=== PATIENT | female | born 1975 | race African-American/Black ===

== ENCOUNTER 2021-08-01 07:07 | Emergency (ER) | payer OTHER ==
[2021-08-01] MEDS ORDERED: Boostrix 0.5 ML (Tdap) VIAL ONE (08:01)
== END 2021-08-01 08:13 | disposition home or self-care (01) ==
LOC: NAV ERS 07:07
DX: L03.012 Cellulitis of left finger (principal); I10 Essential (primary) hypertension; F17.210 Nicotine dependence, cigarettes, uncomplicated; Z79.899 Other long term (current) drug therapy
CPT/HCPCS: 26010; 87070; 87205; 90471; 90715

== ENCOUNTER 2021-11-27 16:35 | Emergency (ER) | payer SELFPAY | END 2021-11-27 17:05 | disposition home or self-care (01) | LOC: NAV ERS 16:35 | DX: L02.811 Cutaneous abscess of head [any part, except face] (principal); I10 Essential (primary) hypertension; F17.210 Nicotine dependence, cigarettes, uncomplicated; Z79.899 Other long term (current) drug therapy | CPT/HCPCS: 87070; 87077; 87186; 87205; 99283 ==

== ENCOUNTER 2022-03-29 07:26 | Emergency (ER) | payer SELFPAY | END 2022-03-29 08:35 | disposition home or self-care (01) | LOC: NAV ERS 07:26 | DX: H61.21 Impacted cerumen, right ear (principal); I10 Essential (primary) hypertension; F17.210 Nicotine dependence, cigarettes, uncomplicated; Z79.899 Other long term (current) drug therapy | CPT/HCPCS: 69209 ==

== ENCOUNTER 2022-05-05 14:30 | Emergency (ER) | payer SELFPAY | END 2022-05-05 16:05 | disposition home or self-care (01) | LOC: NAV ERS 14:30 | DX: R05.9 Cough, unspecified (principal); R19.7 Diarrhea, unspecified; Z20.822 Contact with and (suspected) exposure to COVID-19; I10 Essential (primary) hypertension | CPT/HCPCS: 87081; 87430; 87804; 99283; U0003; U0005 ==

== ENCOUNTER 2022-07-24 07:58 | Emergency (ER) | payer SELFPAY ==
[2022-07-24] MEDS ORDERED: Ketorolac Tromethamine 30 MG/ML VIAL ONE (08:32)
== END 2022-07-24 08:50 | disposition home or self-care (01) ==
LOC: NAV ERS 07:58
DX: K08.89 Other specified disorders of teeth and supporting structures (principal); I10 Essential (primary) hypertension; F17.210 Nicotine dependence, cigarettes, uncomplicated
CPT/HCPCS: 96372; 99282; J1885

== ENCOUNTER 2022-11-24 15:31 | Emergency (ER) | payer SELFPAY | END 2022-11-24 17:37 | disposition home or self-care (01) | LOC: NAV ERS 15:31 | DX: J06.9 Acute upper respiratory infection, unspecified (principal); I10 Essential (primary) hypertension; F17.210 Nicotine dependence, cigarettes, uncomplicated | CPT/HCPCS: 87804; 99283 ==

== ENCOUNTER 2023-06-15 14:21 | Emergency (ER) | payer SELFPAY ==
[2023-06-15] MEDS ORDERED: Naproxen 500 MG TAB ONE (15:12)
[2023-06-15 16:08] LABS: SARS-CoV-2 NAA Rapid Test Not Detected (NotDetected)
== END 2023-06-15 15:29 | disposition home or self-care (01) ==
LOC: NAV ERS 14:21
DX: J02.9 Acute pharyngitis, unspecified (principal); J06.9 Acute upper respiratory infection, unspecified; I10 Essential (primary) hypertension; F17.210 Nicotine dependence, cigarettes, uncomplicated; Z20.822 Contact with and (suspected) exposure to COVID-19
CPT/HCPCS: 87081; 87430; 99283

== ENCOUNTER 2023-09-10 16:08 | Emergency (ER) | payer BC | END 2023-09-10 17:07 | disposition home or self-care (01) | LOC: NAV ERS 16:08 | DX: J06.9 Acute upper respiratory infection, unspecified (principal); I10 Essential (primary) hypertension; F17.290 Nicotine dependence, other tobacco product, uncomplicated; Z79.899 Other long term (current) drug therapy | CPT/HCPCS: 71046; 87804 ==

== ENCOUNTER 2024-06-27 09:04 | Emergency (ER) | payer BC, SELFPAY ==
[2024-06-27] MEDS ORDERED: Ibuprofen 800 MG TAB ONE (09:21)
[2024-06-27 10:28] LABS: Bilirubin Small (Negative); Blood, Urine Negative (Negative); Clarity Clear (Clear); Glucose, Urine (Dipstick) Negative (Negative); Ketone, Urine 15 mg/dL (Negative); Leukocyte Negative (Negative); Nitrite Negative (Negative); Protein, Urine (Dipstick) 100 mg/dL (Neg-Trace); Specific Gravity, Urine 1.015 (1.005-1.030); Urobilinogen > or = 8.0 mg/dL (Less than 2)
[2024-06-27 10:35] LABS: CAUTI Indications for Culture Fever or rigors; RBC/HPF None Seen HPF (0-3); WBC/HPF 0-3 HPF (0-3)
[2024-06-27 10:36] LABS: Bacteria/HPF Rare-Few HPF (None Seen); Urine Culture Reflex No No
[2024-06-27 10:43] LABS: #Lymphocytes 0.9 thou/uL (1.20-3.40); #Monocytes 0.7 thou/uL (0.11-0.59); #Neutrophils 4.5 thou/uL (1.40-6.50); %Basophils 0.4 % (0.0-1.0); %Lymphocytes 14.6 % (21.0-51.0); Hemoglobin 11.6 g/dL (12.0-16.0); Mean Corpuscular HGB CONC 33.2 g/dL (32.0-36.0); Mean Corpuscular Hemoglobin 30.5 pg (27.0-31.0); Mean Corpuscular Volume 92.1 fl (78.0-98.0); Mean Platelet Volume 8.4 fL (7.4-10.4); Platelet Count 160 10x3/uL (130-400); RBC Distribution Width 11.3 % (11.5-14.5); Red Blood Cell (RBC) Count 3.79 mill/uL (4.20-5.40); White Blood Cell (WBC) Count 6.1 10x3/uL (4.8-10.8)
[2024-06-27] MEDS ORDERED: Sodium Chloride 0.9% 1,000 ML ONE (10:55)
[2024-06-27 11:00] LABS: ALT (SGPT) 16 U/L (8-55); AST (SGOT) 15 U/L (5-34); Albumin 3.6 g/dL (3.5-5.0); Alkaline Phosphatase 67 U/L (40-110); Anion Gap 15 mmol/L (10-20); BUN (Urea Nitrogen) 8 mg/dL (7.0-18.7); Bilirubin, Total 1.1 mg/dL (0.2-1.2); Calc. Creatinine Clearance 0 mL/min (70-130); Calcium 9.1 mg/dL (7.8-10.44); Carbon Dioxide 21 mmol/L (22-29); Chloride 102 mmol/L (98-107); Estimated GFR 75; Globulin 4.3 g/dL (2.4-3.5); Glucose 109 mg/dL (70-105); Potassium 3.3 mmol/L (3.5-5.1); Protein, Total 7.9 g/dL (6.0-8.3); Sodium 135 mmol/L (136-145)
== END 2024-06-27 12:13 | disposition home or self-care (01) ==
LOC: NAV ERS 09:04
DX: B34.9 Viral infection, unspecified (principal); E86.0 Dehydration; I10 Essential (primary) hypertension; F17.290 Nicotine dependence, other tobacco product, uncomplicated; Z79.899 Other long term (current) drug therapy
CPT/HCPCS: 36415; 71045; 80053; 81001; 83605; 85025; 87040; 87428; 96360; J7030